=== PATIENT | male | born 2000 | race Caucasian/White ===

== ENCOUNTER 2025-02-08 20:35 | Emergency (ER) | payer MEDICAID, SELFPAY ==
--- OUTSIDE RECORDS SUMMARY | 2018-06-20 08:16 | XMS_ITS | Continuity of Care Document ---
Author Organization [facility] Address [address] [place] [id number] Phone Care Team Providers Care Supervisor Tubing Name Role Phone Cristian Rodriguez Unavailable Unavailable Allergies, Adverse Reactions, Alerts Substance Reaction Status Criticality No Known Allergies Active No Inform ation Medications Medication Instructions Dosage Effective Dates (start - stop) Status Comments clonidine HCl 0.2 mg tablet take 1 tablet by ORAL route every day hs 0.2 MG - Active ziprasidone 40 mg capsule take 1 capsule by oral route 2 times every day in the morning and at bed time - Active bupropion HCl XL 150 mg 24 hr tablet, extended release take 1 tablet by oral route every day 150 MG - Active Problems Condition Type Effective Dates (start - stop) Clini brigitte Status Comments No Known Problems Procedures Procedure Date DOMICIL/R-HOME VISIT [facility] Advance Directives Directive Yes / No Effective Date File Name No Information Encounters Encounter Description Practice Location Reason(s) For Visit Diagnoses Date Provider Providers Copied on Encounter [facility], [address] [place] [address], [id number], tel:[phone] *[facility] No Information 8 Michael Foster. [address] [place] [address], [id number], . [phone] DOMICIL/R-HO UT VISIT NEW [facility], [address] [place] [address], [address], tel:[phone] [facility] Intermittent Explosive DisorderOppositiona l Defiant DisorderAttention-d eficit hyperactivity disorderConduct disorder 7 Kayli Friedman. [address] [place], [address], [place]. tel:[phone] Family History Family Member Type Diagnosis Age At Onset No Information Payers Payer name Insurance type Covered republican ID Authoriza tion(s) No Information Social History Type Description Quantity Date Captured Comments Sex Male Smoking Status No Information Chief Complaint And Reason For Visit No Information Reason For Referral Reason For Referral No Information History Of Present Illness Encounter Date Complaint History Of Prese nt Illness No Information Functional Status Date Functional Assessmen t No Information Instructions Date Instruction Additional Infor mation No Information Assessments Type Assessment Date No Information Patient Care Teams Name Effective Dates (start - stop) Status Members No Information
[2025-02-08 20:41] VITALS: BP 116/74; PULSE 81; TEMP 36.7; O2SAT 96
== END 2025-02-08 20:57 | disposition left against medical advice (07) ==
PROVIDERS: Emergency Provider Family Medicine; PCP Family Medicine
DX: Z53.21 Procedure and treatment not carried out due to patient leaving prior to being seen by health care provider (principal)